=== PATIENT | female | born 1955 | race African-American/Black ===

== ENCOUNTER → 2017-02-21 | Outpatient (CLI) | payer BC ==
--- NOTE | 2017-02-21 12:10 | KCIC ---
DATE: 02/21/2017 EXAM: MAMMO GAYE SCREENING BILATERAL HISTORY: Routine screening COMPARISON: 02/21/2016 This study was interpreted with the benefit of Computerized Aided Detection (CAD). The breast parenchyma is heterogeneously dense, which could reduce sensitivity of mammography. Breast parenchyma level C. FINDINGS: 2-D and 3-D tomosynthesis imaging was performed in CC and MLO projections. The fibroglandular tissues are heterogeneously dense in a nodular pattern. A smooth nodule in the posteromedial aspect of the left breast is unchanged since previous studies such as 02/10/2015. There is a benign-appearing lymph node type density in the axillary tail region of the left breast. No new or enlarging breast densities are seen. There are numerous benign type calcifications in both breasts. No suspicious microcalcifications are seen. There are benign-appearing lymph node type densities in both axillary regions. Multiple foci of skin thickening are present bilaterally compatible with the history of keloids. IMPRESSION: Stable mammograms without evidence of malignancy. BI-RADS CATEGORY: 2 BENIGN FINDING(S) RECOMMENDED FOLLOW-UP: 12M 12 MONTH FOLLOW-UP PQRS compliance statement: Patient information was entered into a reminder system with a target due date for the next mammogram. Mammography is a sensitive method for finding small breast cancers, but it does not detect them all and is not a substitute for careful clinical examination. A negative mammogram does not negate a clinically suspicious finding and should not result in delay in biopsying a clinically suspicious abnormality. "Our facility is accredited by the [employer] Mammography Program."
== END | disposition home or self-care (01) ==
LOC: KCIC MAMMO 08:00
PROVIDERS: ATTEND Family Medicine
DX: Z12.31 Encounter for screening mammogram for malignant neoplasm of breast (principal)
CPT/HCPCS: 77063; G0202; 77067